=== PATIENT | female | born 1955 | race Caucasian/White ===

== ENCOUNTER → 2018-09-06 | Outpatient (CLI) | payer BC ==
--- NOTE | 2018-09-06 12:58 | XR ---
EXAM TYPE: LUMBAR SPINE X RAY SERIES COMPARISON: NONE HISTORY: Lower back pain TECHNIQUE: 4 views are submitted. FINDINGS: Alignment is anatomic. The pedicles are intact. The transverse processes are intact. There is no s pondylolysis or spondylolisthesis. Hypertrophic spurring and diffuse osteopenia noted. Multilevel si gnificant degenerative disc disease with most marked findings at L2-3, L4-5 and L5-S1. Facet arthropa thy at all levels. IMPRESSION: 1. Multilevel severe degenerative disc disease and facet arthropathy..
--- NOTE | 2018-09-06 13:18 | US ---
EXAMINATION TYPE: US venous doppler duplex LE LT DATE OF EXAM: 09/06/2018 12:20 PM COMPARISON: NONE CLINICAL HISTORY: R22.42 Localized swelling, mass and lump, left low. Pt states left leg and back nahum n x 3 days SIDE PERFORMED: Left TECHNIQUE: The lower extremity deep venous system is examined utilizing real time linear array sonog mac with graded compression, doppler sonography and color-flow sonography. VESSELS IMAGED: External Iliac Vein (EIV) Common Femoral Vein Deep Femoral Vein Greater Saphenous Vein * Femoral Vein Popliteal Vein Small Saphenous Vein * Proximal Calf Veins (* superficial vessels) There is echogenic thrombus, lack of compression, and no vascular flow within the left popliteal vein and proximal calf veins. Remainder of the left lower extremity venous system is unremarkable as visu alized. Left Leg: Positive for DVT left pop veins and proximal calf veins Results called to Tova at 's office at time of exam IMPRESSION: Positive deep venous thrombosis within the left popliteal vein extending downward through the proximal calf veins. Findings were communicated with Dr. Bernardo's office by the doctor naturopathic at the time of examination.
== END ==
LOC: RADUSWWP 11:28
PROVIDERS: ATTEND Internal Medicine Geriatric Medicine
DX: M51.36 Other intervertebral disc degeneration, lumbar region (principal); M46.96 Unspecified inflammatory spondylopathy, lumbar region; I82.432 Acute embolism and thrombosis of left popliteal vein
CPT/HCPCS: 72100

== ENCOUNTER → 2018-09-09 | Outpatient (CLI) | payer BC ==
--- NOTE | 2018-09-09 13:39 | NM ---
EXAMINATION TYPE: NM bone scan whole body DATE OF EXAM: 09/09/2018 COMPARISON: Lumbar x-ray 09/06/2018 HISTORY: Breast cancer Delayed whole-body scanning was performed following the injection of 25.9 mCi Tc 99m MDP. Images acq uired 3 hours post injection. FINDINGS: Abnormal uptake involving the feet, knees are most typical of arthritic changes. Nonspecific uptake i nvolving the shoulders likely post arthritic greater on the right. X-ray correlation on the right cou ld be obtained. Asymmetric reduced uptake involving the proximal diaphysis of the right femur. There is abnormal uptake throughout the thoracic spine and mid and lower lumbar spine with most marke d findings at L5 on the right. IMPRESSION: 1. Abnormal uptake involving the thoracic and lumbar spine is nonspecific but degenerative changes ar e favored given the intensity of uptake. Recent x-ray at the level L4-5 and L5-S1 consistent with deg enerative changes. 2. Abnormal uptake involving the right shoulder could be related the patient's history of previous ri ght shoulder shoulder surgery and arthritic changes. 3. Photopenic area involving the right hip proximally. Recommend x-ray correlation.
== END | disposition home or self-care (01) ==
LOC: RADNMMAIN 09:38
PROVIDERS: ATTEND Internal Medicine Geriatric Medicine
DX: C50.919 Malignant neoplasm of unspecified site of unspecified female breast (principal); R93.7 Abnormal findings on diagnostic imaging of other parts of musculoskeletal system
CPT/HCPCS: 78306; A9503

== ENCOUNTER → 2019-04-20 | Outpatient (CLI) | payer BC ==
--- NOTE | 2019-04-20 13:56 | US ---
EXAMINATION TYPE: US venous doppler duplex LE LT DATE OF EXAM: 04/20/2019 1:45 PM COMPARISON: 08/2018 CLINICAL HISTORY: I82.890 DVT. SIDE PERFORMED: left TECHNIQUE: The lower extremity deep venous system is examined utilizing real time linear array sonog mac with graded compression, doppler sonography and color-flow sonography. VESSELS IMAGED: External Iliac Vein (EIV) Common Femoral Vein Deep Femoral Vein Greater Saphenous Vein * Femoral Vein Popliteal Vein Small Saphenous Vein * Proximal Calf Veins (* superficial vessels) Grayscale, color doppler, spectral doppler imaging performed of the deep veins of the left lower extr emity. There is normal flow, compressibility, vascular waveforms. pt on eloquis 6 months , popliteal wnl Left Leg: Negative for DVT IMPRESSION: The previously seen deep venous thrombosis within the left popliteal vein has resolved in the interim as this patient has been on blood thinners. No deep venous thrombosis is seen within t he left lower extremity.
== END | disposition home or self-care (01) ==
LOC: RADUSWWP 13:23
PROVIDERS: ATTEND Internal Medicine Hematology & Oncology
DX: I82.890 Acute embolism and thrombosis of other specified veins (principal)

== ENCOUNTER → 2019-10-11 | Outpatient (CLI) | payer MEDICARE ==
--- NOTE | 2019-10-11 10:08 | MR ---
EXAMINATION TYPE: MR lumbar spine wo/w con DATE OF EXAM: 10/11/2019 COMPARISON: Plain film 09/06/2018, bone scan 09/09/2018 HISTORY: Spinal enthesopathy TECHNIQUE: Multiplanar, multisequence images of the lumbar spine were acquired utilizing 7.5 mL intravenous Gada vist gadolinium contrast. L1-L2: Broad-based posterior disc bulge causes mild anterior mass effect sac. No significant central stenosis or foraminal. L2-L3: There is facet arthropathy change causing some posterior lateral mass effect on the thecal sac . Circumferential posterior extension endplate disc complex causes mild anterior mass effect thecal s ac. No significant foraminal encroachment. L3-L4: Circumferential broad-based disc bulge causes minimal anterior mass effect on the thecal sac. No significant spinal stenosis. Facet arthropathy causes posterior lateral mass effect on the thecal sac. Circumferential extension of endplate disc complex encroaches somewhat on the neural foramen rig ht greater than left. L4-L5: Posterior broad-based disc bulge causes anterior mass effect on the thecal sac. Circumferentia l extension of endplate disc complex results in foraminal encroachment greater on the right. There is some facet arthropathy with hypertrophy ligamentum flavum. No significant spinal stenosis. L5-S1: Facet arthropathy changes present. Circumferencial extension of endplate disc complex results in bilateral foraminal encroachment. Posterior extension endplate disc complex may contact the proxim al S1 nerve roots, anterior thecal sac. No significant spinal stenosis. Lumbar segments are intact. No paraspinal masses are identified. Conus medullaris has a normal appe arance. Is multilevel spondylosis. Endplate discogenic marrow signal changes are noted. Vacuum phenom enon present L4-5, L3-4, L2-3 and L1-2, L5-S1. Loss of disc height and signal present at intervertebr al levels. Probable hemangioma present in the L1 vertebral body. There are parapelvic cysts noted wit hin the kidneys. No abnormal enhancement following contrast administration. IMPRESSION: Multilevel degenerative disc disease, foraminal encroachment, facet arthropathy. Additional findings above.
== END | disposition home or self-care (01) ==
LOC: RADMRIMAIN 08:28
PROVIDERS: ATTEND Internal Medicine Geriatric Medicine
DX: M51.36 Other intervertebral disc degeneration, lumbar region (principal); M46.96 Unspecified inflammatory spondylopathy, lumbar region
CPT/HCPCS: 72158; A9585

== ENCOUNTER → 2021-04-29 | Outpatient (CLI) | payer MEDICARE ==
--- NOTE | 2021-04-30 16:48 | BD ---
EXAMINATION TYPE: Axial Bone Density DATE OF EXAM: 04/29/2021 COMPARISON: NONE CLINICAL HISTORY: Height: 62 Weight: 169.1 FRAX RISK QUESTIONS: Alcohol (3 or more units per day): no Family History (Parent hip fracture): no Glucocorticoids (More than 3mos): no (Ex: prednisone, prednisolone, methylprednisolone, dexamethasone, and hydrocortisone). History of Fracture in Adulthood: no Secondary Osteoporosis: 1. Type 1 Diabetes: no 2. Hyperthyroidism: no 3. Menopause before 45: yes 4. Malnutrition: no 5. Chronic liver disease: no Rheumatoid Arthritis: no Current Tobacco Use: no RISK FACTORS HISTORY OF: Surgery to Spine/Hip(right/left)/Wrist (right/left): no Family History of Osteoporosis: no Active: yes Diet low in dairy products/other sources of calcium: yes Postmenopausal woman: age 41 Lost more than 2 inches in height since high school: no MEDICATIONS: singular, letrozole, crestor Additional History: EXAM MEASUREMENTS: Bone mineral densitometry was performed using the [employer] System. Bone mineral density as measured about the Lumbar spine is: ----- L1-L4(G/cm2): 1.115 T Score Values are as follows: ----- L2: -0.8 ----- L3: -0.7 ----- L4: 0.6 ----- L1-L4: -0.5 Bone mineral density : baseline Bone mineral density about the R hip (g/cm2): 0.934 Bone mineral density about the L hip (g/cm2): 0.883 T Score values are as follows: -----R Neck: -0.7 -----L Neck: -1.1 -----R Total: 0.0 -----L Total: -0.4 Bone mineral density : baseline IMPRESSION: Normal (Values between +1 and -1 indicate normal bone mass). Consider repeating this study in 5 year s or sooner if there is some new clinical indication. NOTE: T-SCORE=SD OF THE YOUNG ADULT MEAN.
== END | disposition home or self-care (01) ==
LOC: RADBDWWP 16:03
PROVIDERS: ATTEND Internal Medicine Geriatric Medicine
DX: M81.0 Age-related osteoporosis without current pathological fracture (principal)
CPT/HCPCS: 77080

== ENCOUNTER → 2022-04-29 | Outpatient (CLI) | payer MEDICARE ==
--- NOTE | 2022-04-29 12:27 | XR ---
EXAM TYPE: LUMBAR SPINE X RAY SERIES COMPARISON: NONE HISTORY: Diffuse osteopenia TECHNIQUE: 4 views are submitted. FINDINGS: Alignment is anatomic. The pedicles are intact. The transverse processes are intact. There is a hy pertrophic and degenerative changes of the spine with most marked findings at L2-3, L4-5 and L5-S1. M ultilevel facet arthropathy with foraminal encroachment suspected at levels L3-S1. IMPRESSION: 1. Diffuse osteopenia with multilevel moderate to severe degenerative disc disease and facet arthropa thy. Suspect multilevel foraminal encroachment with most marked findings at L4-5 and L5-S1..
== END | disposition home or self-care (01) ==
LOC: RADXRMAIN 12:03
PROVIDERS: ATTEND Internal Medicine Geriatric Medicine
DX: M48.00 Spinal stenosis, site unspecified (principal)
CPT/HCPCS: 72100

== ENCOUNTER → 2022-10-02 | Outpatient (CLI) | payer MEDICARE ==
--- NOTE | 2022-10-02 08:02 | US ---
EXAMINATION TYPE: US abdomen complete DATE OF EXAM: 10/02/2022 COMPARISON: NONE CLINICAL HISTORY: R10.9 ABD PAIN. LUQ pain under ribcage TECHNIQUE: Multiple sonographic images of the abdomen are obtained. FINDINGS: EXAM MEASUREMENTS: Liver Length: 18.8 cm Gallbladder Wall: 0.2 cm CBD: 0.5 cm Spleen: 10.4 cm Right Kidney: 9.1 x 5.4 x 5.7 cm Left Kidney: 10.3 x 3.8 x 5.5 cm [employer]PER[employer] NOTES: limited views due to habitus and bowel gas Pancreas: limited views appear wnl Liver: focal fatty sparring seen at left lobe = 2.8 x 2.8 x 1.5cm Gallbladder: wnl Evidence for sonographic Boothe's sign: no CBD: wnl Spleen: wnl Right Kidney: wnl Left Kidney: wnl Upper IVC: wnl Abd Aorta: wnl The limited portion of the visualized pancreas is unremarkable. The liver is diffusely hyperechoic wi th focal hypoechoic region in the left hepatic lobe measuring 2.8 x 2.8 x 1.5 cm. Gallbladder is with in normal limits without evidence of cholelithiasis. The intrahepatic portion of the IVC and proximal abdominal aorta are within normal limits. The spleen is unremarkable. Kidneys are symmetric and fr ee of hydronephrosis. No renal lesions are seen. IMPRESSION: 1. No acute process. 2. Hepatic steatosis with focal hypoechoic region in the left hepatic lobe favored to represent fatty sparing. This could be confirmed with CT or MRI with and without IV contrast liver mass protocol.
== END | disposition home or self-care (01) ==
LOC: RADUSWWP 07:16
PROVIDERS: ATTEND Internal Medicine Geriatric Medicine
DX: K76.0 Fatty (change of) liver, not elsewhere classified (principal)
CPT/HCPCS: 76700

== ENCOUNTER → 2022-10-06 | Outpatient (CLI) | payer MEDICARE ==
--- NOTE | 2022-10-06 11:03 | XR ---
EXAMINATION TYPE: XR chest 2V DATE OF EXAM: 10/06/2022 COMPARISON: NONE TECHNIQUE: PA and lateral views submitted. HISTORY: Pain FINDINGS: The lungs are clear and there is no pneumothorax, pleural effusion, or focal pneumonia. Heart size is prominent with a lobulated left heart border. Limited inspiration. Postsurgical change right shoul kirby.. Osseous structures demonstrate hypertrophic and degenerative changes of the spine. Calcified ly mph nodes in the mediastinum. IMPRESSION: 1. Lobulated left heart border. Could represent a cardiac chamber enlargement. Recommend CT of the ch est exclude other etiologies including mediastinal mass..
--- NOTE | 2022-10-06 11:08 | XR ---
EXAMINATION TYPE: XR thoracic spine complete DATE OF EXAM: 10/06/2022 COMPARISON: NONE HISTORY: Pain TECHNIQUE: 3 views submitted FINDINGS: Alignment is anatomic. There is scoliotic curvature despite multilevel moderate to severe degenerati ve disc disease. Calcified mediastinal and hilar lymph nodes noted. Heart size prominent but limited in the [id number]. The downsloping of degenerative disc disease lower cervical spine. IMPRESSION: 1. Scoliosis with moderate to severe multilevel degenerative disc disease.
== END | disposition home or self-care (01) ==
LOC: RADXRMAIN 10:26
PROVIDERS: ATTEND Internal Medicine
DX: S23.41XA Sprain of ribs, initial encounter (principal); M51.34 Other intervertebral disc degeneration, thoracic region; M41.84 Other forms of scoliosis, thoracic region
CPT/HCPCS: 71046; 72072

== ENCOUNTER → 2023-05-19 | Outpatient (CLI) | payer MEDICARE ==
--- NOTE | 2023-05-19 15:58 | XR ---
EXAMINATION TYPE: XR knee complete LT DATE OF EXAM: 05/19/2023 COMPARISON: NONE HISTORY: Pain TECHNIQUE: Three views are submitted. FINDINGS: Mild narrowing of the tricompartment joint space is marginal spurring. Mild diffuse osteopenia. No er osive changes. There is small amount of fluid versus.. Osseous structures are intact. No acute frac ture seen. IMPRESSION: 1. Mild osteoarthritis and diffuse osteopenia. There is a small amount of fluid in the suprapatellar bursa which may be associated with internal derangement of the knee. Consider follow-up MRI.
--- NOTE | 2023-05-19 16:00 | BD ---
EXAMINATION TYPE: Axial Bone Density DATE OF EXAM: 05/19/2023 CLINICAL HISTORY: 67 years old Female. ICD-10 CODE: M81.0 AGE-RELATED OSTEOPOROSIS W/O CURRENT PATHO LO Height: 60 in Weight: 178 lbs FRAX RISK QUESTIONS: Secondary Osteoporosis: 3. Menopause before 45: partial hysterectomy age 41 RISK FACTORS HISTORY OF: Active: yes Diet low in dairy products/other sources of calcium: yes Postmenopausal woman: partial hysterectomy age 41 MEDICATIONS: Additional Medications: vit d, letrozole,cholesterol meds, neuropathy meds, asthma meds, arthritis me ds Additional History: breast cancer EXAM MEASUREMENTS: Bone mineral densitometry was performed using the [employer] System. Bone mineral density as measured about the Lumbar spine is: ----- L1-L4(G/cm2): 1.163 T Score Values are as follows: ----- L1: -1.0 ----- L2: -0.9 ----- L3: 0.6 ----- L4: 0.7 ----- L1-L4: -0.1 Z Score Values are as follows: ----- L1: 0.1 ----- L2: 0.2 ----- L3: 1.7 ----- L4: 1.8 ----- L1-L4: 1.0 Bone mineral density has: Increased 4.3% since study of: 04/29/2021 Bone mineral density about the R hip (g/cm2): 0.974 Bone mineral density about the L hip (g/cm2): 0.966 T Score values are as follows: -----R Neck: -0.9 -----L Neck: -1.0 -----R Total: -0.3 -----L Total: -0.3 Z Score values are as follows: -----R Neck: 0.4 -----L Neck: 0.3 -----R Total: 0.7 -----L Total: 0.7 Bone mineral density has: Decreased -1.3% since study of: 04/29/2021 FRAX%s: The graph provided illustrates a 8.0% chance for a major osteoporotic fx and a 0.7% chance fo r the hips probability for fx in 10 years time. IMPRESSION: Normal (Values between +1 and -1 indicate normal bone mass). Consider repeating this study in 5 year s or sooner if there is some new clinical indication. NOTE: T-SCORE=SD OF THE YOUNG ADULT MEAN.
== END | disposition home or self-care (01) ==
LOC: RADBDWWP 14:47
PROVIDERS: ATTEND Internal Medicine Geriatric Medicine
DX: M81.0 Age-related osteoporosis without current pathological fracture (principal); M17.12 Unilateral primary osteoarthritis, left knee; M85.862 Other specified disorders of bone density and structure, left lower leg; D65 Disseminated intravascular coagulation [defibrination syndrome]
CPT/HCPCS: 77080

== ENCOUNTER 2024-06-29 07:11 | Emergency (ER) | payer MEDICARE ==
--- NOTE | 2024-06-29 08:26 | ED ---
URI HPI - General Chief Complaint: Upper Respiratory Infection Stated Complaint: Covid+ Time Seen by Provider: 06/29/24 07:20 Source: patient, family, RN notes reviewed Mode of arrival: ambulatory Limitations: no limitations - History of Present Illness Initial Comments: This is a 68-year-old female with history of asthma presenting with cold-like symptoms x 9 days patient patient endorses productive cough, nasal congestion, headache, reproducible chest pain, shortness of breath and fatigue. Patient endorses symptoms beginning while she was vacationing in [facility]. Patient endorses positive at-home COVID test 5 days ago following her return. Patient endorses receiving Z-James and Medrol Dosepak from primary care for symptoms with minimal relief despite near completion of regiment. Patient denies fever, chills, body aches, sore throat, wheezing, N/V/D. MD Complaint: cough, nasal congestion Onset/Timin -: days(s) - Related Data Allergies Allergy/AdvReac Type Severity Reaction Status Date / Time No Known Allergies Allergy Verified 06/29/24 07:28 Review of Systems ROS Statement: Those systems with pertinent positive or pertinent negative responses have been documented in the HPI. ROS Other: All systems not noted in ROS Statement are negative. Past Medical History Past Medical History: Asthma, Cancer Additional Past Medical History / Comment(s): Breast Ca Past Surgical History: Hysterectomy, Orthopedic Surgery Additional Past Surgical History / Comment(s): Rotator Cuff Sx Past Psychological History: No Psychological Hx Reported Smoking Status: Former smoker Past Alcohol Use History: Occasional Past Drug Use History: None Reported General Exam Limitations: no limitations General appearance: alert, in no apparent distress Head exam: Present: atraumatic, normocephalic, normal inspection Eye exam: Present: normal appearance, PERRL, EOMI. Absent: scleral icterus, conjunctival injection, periorbital swelling ENT exam: Present: normal exam (Postnasal drip noted), mucous membranes moist Neck exam: Present: normal inspection. Absent: tenderness, meningismus, lymphadenopathy Respiratory exam: Present: normal lung sounds bilaterally. Absent: respiratory distress, wheezes, rales, rhonchi, stridor Cardiovascular Exam: Present: regular rate, normal rhythm, normal heart sounds. Absent: systolic murmur, diastolic murmur, rubs, gallop, clicks GI/Abdominal exam: Present: soft, normal bowel sounds. Absent: distended, tenderness, guarding, rebound, rigid Extremities exam: Present: normal inspection, full ROM, normal capillary refill. Absent: tenderness, pedal edema, joint swelling, calf tenderness Back exam: Present: normal inspection Neurological exam: Present: alert, oriented X3, CN II-XII intact Psychiatric exam: Present: normal affect, normal mood Skin exam: Present: warm, dry, intact, normal color. Absent: rash Course Vital Signs 06/29/24 06/29/24 07:29 09:30 Temperature 97.9 F 98.1 F Pulse Rate 91 61 Respiratory 18 20 Rate Blood Pressure 183/98 184/90 O2 Sat by Pulse 97 96 Oximetry Medical Decision Making - Medical Decision Making Was pt. sent in by a medical professional or institution (, PA, LEADING FIREFIGHTER, urgent care, hospital, or fci...) When possible be specific @ -[No] Did you speak to anyone other than the patient for history (EMS, parent, family, police, friend...)? What history was obtained from this source @ -[No] Did you review nursing and triage notes (agree or disagree)? Why? @ -[I reviewed and agree with nursing and triage notes] Were old charts reviewed (outside hosp., previous admission, EMS record, old EKG, old radiological studies, urgent care reports/EKG's, fci records)? Report findings @ -[No old charts were reviewed] Differential Diagnosis (chest pain, altered mental status, abdominal pain women, abdominal pain men, vaginal bleeding, weakness, fever, dyspnea, syncope, headache, dizziness, GI bleed, back pain, seizure, CVA, palpatations, mental health, musculoskeletal)? @ -Upper respiratory infection, COVID-19, acute bronchitis, pneumonia, croup, asthma, influenza EKG interpreted by me (3pts min.). @ -Not done X-rays interpreted by me (1pt min.). @ -Chest x-ray shows no pulmonary edema or focal consolidation. CT interpreted by me (1pt min.). @ -[None done] U/S interpreted by me (1pt. min.). @ -[None done] What testing was considered but not performed or refused? (CT, X-rays, U/S, labs)? Why? @ -[None] What meds were considered but not given or refused? Why? @ -[None] Did you discuss the management of the patient with other professionals (professionals i.e. , PA, LEADING FIREFIGHTER, lab, RT, psych nurse, licensed social worker, network associate, teacher, ethics officer, case consultant)? Give summary @ -[No] Was smoking cessation discussed for >3mins.? @ -[No] Was critical care preformed (if so, how long)? @ -[No] Were there social determinants of health that impacted care today? How? (Homelessness, low income, unemployed, alcoholism, drug addiction, transportation, low edu. Level, literacy, decrease access to med. care, snf, rehab)? @ -[No] Was there de-escalation of care discussed even if they declined (Discuss DNR or withdrawal of care, Hospice)? DNR status @ -[No] What co-morbidities impacted this encounter? (DM, HTN, Smoking, COPD, CAD, Cancer, CVA, ARF, Chemo, Hep., AIDS, mental health diagnosis, sleep apnea, morbid obesity)? @ -[None] Was patient admitted / discharged? Hospital course, mention meds given and route, prescriptions, significant lab abnormalities, going to OR and other pertinent info. @ -Discharge. Cephad test negative chest x-ray unremarkable. Patient notes some improvement with breathing following Solu-Medrol IV. Patient notes resolu tion of previous complaints following treatment. Undiagnosed new problem with uncertain prognosis? @ -[No] Drug Therapy requiring intensive monitoring for toxicity (Heparin, Nitro, Insulin, Cardizem)? @ -[No] Were any procedures done? @ -[No] Diagnosis/symptom? @ -Acute bronchitis following COVID infection. Acute, or Chronic, or Acute on Chronic? @ -Acute Uncomplicated (without systemic symptoms) or Complicated (systemic symptoms)? @ -Uncomplicated Side effects of treatment? @ -[No] Exacerbation, Progression, or Severe Exacerbation? @ -[No] Poses a threat to life or bodily function? How? (Chest pain, USA, SD, pneumonia, PE, COPD, DKA, ARF, appy, cholecystitis, CVA, Diverticulitis, Homicidal, Suicidal, threat to staff... and all critical care pts) @ -[No] - Lab Data Lab Results 06/29/24 Range/Units 08:21 Influenza Type A (PCR) Not Detected (Not Detectd) Influenza Type B (PCR) Not Detected (Not Detectd) RSV (PCR) Not Detected (Not Detectd) SARS-CoV-2 (PCR) Not Detected (Not Detectd) Disposition Clinical Impression: Bronchitis Disposition: HOME SELF-CARE Condition: Good Instructions (If sedation given, give patient instructions): Upper Respiratory Infection (ED) Is patient prescribed a controlled substance at d/c from ED?: No Referrals: Mt Marks MD [Primary Care Provider] - 1-2 days Time of Disposition: 10:25
[2024-06-29] MEDS: methylPREDNISolone SOD SUCCI 125 MG/2 ML VIAL IM ONE (08:48)
--- NOTE | 2024-06-29 08:51 | XR ---
EXAMINATION TYPE: XR chest 2V DATE OF EXAM: 06/29/2024 COMPARISON: 10/06/2022 HISTORY: 68 year-old female shortness of breath and productive cough TECHNIQUE: PA and lateral views FINDINGS: Heart upper limits of normal in size. Some stringy areas of atelectasis remain at the lower lungs. No celso consolidation is identified. No pleural effusion. Suture anchor right humeral head from prior cuff repair. IMPRESSION: Some stranding areas of atelectasis at the lower lungs. No celso airspace disease is seen at this jose e. [facility], , 06/29/2024 8:49 AM
[2024-06-29 09:46] VITALS: BP 184/90; PULSE 61; RESP 20; TEMP 98.1
== END 2024-06-29 11:02 | disposition home or self-care (01) ==
LOC: EC 07:11
CPT/HCPCS: 71046; 87636; 96372; 99285

== ENCOUNTER 2024-07-17 11:47 | Emergency (ER) | payer MEDICARE ==
--- NOTE | 2024-07-17 13:37 | ED ---
General Adult HPI - General Chief complaint: Recheck/Abnormal Lab/Rx Stated complaint: Hypertension Time Seen by Provider: 07/17/24 12:41 Source: patient, family, RN notes reviewed Mode of arrival: ambulatory Limitations: no limitations - History of Present Illness Initial comments: Patient is a 68-year-old female present to the emergency department with concerns with high blood pressure. Patient was at her primary care physician's office a week ago and blood pressure was fine at that time. Patient does have recent COVID-19 infection and is on her second round of antibiotics and steroids. Patient has continued cough. Patient has had a mild headache. Blood pressure at home the past 2 days has been as high as 220/110. No history of hypertension. Patient did take one of her husbands hydralazine yesterday and today. - Related Data Previous Rx's Medication Instructions Recorded amLODIPine [Norvasc] 5 mg PO DAILY #7 tab 07/17/24 Allergies Allergy/AdvReac Type Severity Reaction Status Date / Time No Known Allergies Allergy Verified 06/29/24 07:28 Review of Systems ROS Statement: Those systems with pertinent positive or pertinent negative responses have been documented in the HPI. ROS Other: All systems not noted in ROS Statement are negative. Constitutional: Denies: fever Eyes: Denies: eye pain ENT: Denies: ear pain Respiratory: Reports: cough. Denies: dyspnea Cardiovascular: Denies: chest pain Gastrointestinal: Denies: abdominal pain Genitourinary: Denies: dysuria Musculoskeletal: Denies: back pain Neurological: Reports: as per HPI, headache. Denies: weakness, confusion Past Medical History Past Medical History: Asthma, Cancer Additional Past Medical History / Comment(s): Breast Ca Past Surgical History: Hysterectomy, Orthopedic Surgery Additional Past Surgical History / Comment(s): Rotator Cuff Sx Past Psychological History: No Psychological Hx Reported Smoking Status: Former smoker Past Alcohol Use History: Occasional Past Drug Use History: None Reported General Exam Limitations: no limitations General appearance: alert, in no apparent distress Head exam: Present: normocephalic Eye exam: Present: normal appearance, PERRL Neck exam: Present: normal inspection Respiratory exam: Present: normal lung sounds bilaterally Cardiovascular Exam: Present: regular rate, normal rhythm GI/Abdominal exam: Present: soft. Absent: tenderness Extremities exam: Present: normal inspection. Absent: pedal edema, calf tenderness Neurological exam: Present: alert, oriented X3, CN II-XII intact. Absent: motor sensory deficit Expanded Neurological exam: Present: protecting the airway Speech: Present: fluid speech Motor strength exam: RUE: 5, LUE: 5, RLE: 5, LLE: 5 Eye Response: (4) open spontaneously Motor Response: (6) obeys commands Verbal Response: (5) oriented Psychiatric exam: Present: normal affect, normal mood Skin exam: Present: normal color Course Vital Signs 07/17/24 07/17/24 12:13 13:50 Temperature 98.2 F Pulse Rate 95 Respiratory 18 Rate Blood Pressure 154/80 157/86 O2 Sat by Pulse 97 Oximetry EKG Findings - EKG Results: EKG: interpreted by JESSICAD, sinus rhythm, normal axis, normal QRS, normal ST/T Medical Decision Making - Medical Decision Making Was pt. sent in by a medical professional or institution (, PA, DIGITAL MARKETING CONSULTANT, urgent care, hospital, or skilled nursing...) When possible be specific @ -No Did you speak to anyone other than the patient for history (EMS, parent, family, police, friend...)? What history was obtained from this source @ - is present helps provide history including blood pressure monitoring Did you review nursing and triage notes (agree or disagree)? Why? @ -I reviewed and agree with nursing and triage notes Were old charts reviewed (outside hosp., previous admission, EMS record, old EKG, old radiological studies, urgent care reports/EKG's, skilled nursing records)? Report findings @ -No old charts were reviewed Differential Diagnosis (chest pain, altered mental status, abdominal pain women, abdominal pain men, vaginal bleeding, weakness, fever, dyspnea, syncope, headache, dizziness, GI bleed, back pain, seizure, CVA, palpatations, mental health, musculoskeletal)? @ -Differential Dizziness: Benign paroxysmal positional Vertigo, Meniere's disease, otitis media, acoustic neuroma, vertebrobasilar insufficiency, cerebellar stroke, encephalitis, hypovolemic, arrhythmia, coronary artery syndrome, anemia, this is not meant to be an all-inclusive list EKG interpreted by me (3pts min.). @ -As above X-rays interpreted by me (1pt min.). @ -Chest x-ray does not reveal acute abnormality CT interpreted by me (1pt min.). @ -None done U/S interpreted by me (1pt. min.). @ -None done What testing was considered but not performed or refused? (CT, X-rays, U/S, labs)? Why? @ -Consider CT scan of the brain however on reevaluation patient states headaches have only been mild and are not severe. Patient does not even feel she needs medication for it. Patient does not want CTs done. What meds were considered but not given or refused? Why? @ -None Did you discuss the management of the patient with other professionals (professionals i.e. DrSalud, PA, DIGITAL MARKETING CONSULTANT, lab, RT, psych nurse, social work program coordinator, staple cutter, teacher, major gifts officer, shoe caser)? Give summary @ -No Was smoking cessation discussed for >3mins.? @ -No Was critical care preformed (if so, how long)? @ -No Were there social determinants of health that impacted care today? How? (Homelessness, low income, unemployed, alcoholism, drug addiction, tr ansportation, low edu. Level, literacy, decrease access to med. care, alf, rehab)? @ -No Was there de-escalation of care discussed even if they declined (Discuss DNR or withdrawal of care, Hospice)? DNR status @ -No What co-morbidities impacted this encounter? (DM, HTN, Smoking, COPD, CAD, Cancer, CVA, ARF, Chemo, Hep., AIDS, mental health diagnosis, sleep apnea, morbid obesity)? @ -None Was patient admitted / discharged? Hospital course, mention meds given and route, prescriptions, significant lab abnormalities, going to OR and other pertinent info. @ -Patient presents with hypertension and otherwise minimal symptoms. Blood pressure is well-controlled in the emergency department. Patient will be started on low-dose medication and recommended close follow-up. Patient states she is already in touch with her doctor for close follow-up. Undiagnosed new problem with uncertain prognosis? @ -No Drug Therapy requiring intensive monitoring for toxicity (Heparin, Nitro, Insulin, Cardizem)? @ -No Were any procedures done? @ -No Diagnosis/symptom? @ -Hypertension Acute, or Chronic, or Acute on Chronic? @ -Acute Uncomplicated (without systemic symptoms) or Complicated (systemic symptoms)? @ -Default Side effects of treatment? @ -No Exacerbation, Progression, or Severe Exacerbation? @ -No Poses a threat to life or bodily function? How? (Chest pain, [place], [place], pneumonia, PE, COPD, DKA, ARF, appy, cholecystitis, CVA, Diverticulitis, Homicidal, Suicidal, threat to staff... and all critical care pts) @Threat to multiple functions - Lab Data Result diagrams: 07/17/24 13:55 07/17/24 14:00 Lab Results 07/17/24 07/17/24 Range/Units 13:55 14:00 WBC 14.8 H (3.8-10.6) k/uL RBC 3.86 (3.80-5.40) m/uL Hgb 12.7 (11.4-16.0) gm/dL Hct 39.0 (34.0-46.0) % MCV 100.9 H (80.0-100.0) fL MCH 32.9 (25.0-35.0) pg MCHC 32.6 (31.0-37.0) g/dL RDW 13.2 (11.5-15.5) % Plt Count 330 (150-450) k/uL MPV 7.5 Neutrophils % 75 % Lymphocytes % 18 % Monocytes % 4 % Eosinophils % 1 % Basophils % 0 % Neutrophils # 11.1 H (1.3-7.7) k/uL Lymphocytes # 2.7 (1.0-4.8) k/uL Monocytes # 0.6 (0-1.0) k/uL Eosinophils # 0.2 (0-0.7) k/uL Basophils # 0.0 (0-0.2) k/uL Sodium 135 L (137-145) mmol/L Potassium 3.9 (3.5-5.1) mmol/L Chloride 106 (98-107) mmol/L Carbon Dioxide 25 (22-30) mmol/L Anion Gap 4 mmol/L BUN 34 H (7-17) mg/dL Creatinine 1.14 H (0.52-1.04) mg/dL Est GFR (CKD-EPI)AfAm 57 (>60 ml/min/1.73 sqM) Est GFR (CKD-EPI)NonAf 49 (>60 ml/min/1.73 sqM) Glucose 86 (74-99) mg/dL Calcium 8.7 (8.4-10.2) mg/dL Total Bilirubin 1.4 H (0.2-1.3) mg/dL AST 38 H (14-36) U/L ALT 28 (4-34) U/L Alkaline Phosphatase 91 (38-126) U/L Total Protein 6.7 (6.3-8.2) g/dL Albumin 4.1 (3.5-5.0) g/dL Disposition Clinical Impression: Hypertension Disposition: HOME SELF-CARE Condition: Stable Instructions (If sedation given, give patient instructions): Hypertension (ED) Additional Instructions: Prescription sent to pharmacy. Please do follow-up with your primary care physician this week. Return for uncontrolled blood pressure, chest pain or headache or weakness, worsening or changing symptoms or other concerns. Prescriptions: amLODIPine [Norvasc] 5 mg PO DAILY #7 tab Is patient prescribed a controlled substance at d/c from ED?: No Referrals: Mt Marks MD [Primary Care Provider] - 1-2 days Time of Disposition: 15:32
[2024-07-17 14:05] LABS: Basophils % (A) 0 %; Eosinophils # (A) 0.2 k/uL (0-0.7); Eosinophils % (A) 1 %; HGB 12.7 gm/dL (11.4-16.0); Lymphocytes # (A) 2.7 k/uL (1.0-4.8); Lymphocytes % (A) 18 %; MCH 32.9 pg (25.0-35.0); MCHC 32.6 g/dL (31.0-37.0); MCV 100.9 fL (80.0-100.0); Mean Platelet Volume 7.5; Monocytes # (A) 0.6 k/uL (0-1.0); Monocytes % (A) 4 %; Neutrophils # (A) 11.1 k/uL (1.3-7.7); Neutrophils % (A) 75 %; Platelet Count 330 k/uL (150-450); RBC 3.86 m/uL (3.80-5.40); RDW 13.2 % (11.5-15.5); WBC 14.8 k/uL (3.8-10.6)
[2024-07-17 14:18] LABS: ALT 28 U/L (4-34); AST 38 U/L (14-36); African American GFR (CKD) 57 (>60 ml/min/1.73 sqM); Albumin 4.1 g/dL (3.5-5.0); Alkaline Phosphatase 91 U/L (38-126); Anion Gap 4 mmol/L; Blood Urea Nitrogen 34 mg/dL (7-17); Calcium 8.7 mg/dL (8.4-10.2); Carbon Dioxide 25 mmol/L (22-30); Chloride 106 mmol/L (98-107); Glucose 86 mg/dL (74-99); Non-African American GFR(CKD) 49 (>60 ml/min/1.73 sqM); Potassium 3.9 mmol/L (3.5-5.1); Sodium 135 mmol/L (137-145); Total Bilirubin 1.4 mg/dL (0.2-1.3); Total Protein 6.7 g/dL (6.3-8.2)
--- NOTE | 2024-07-17 14:50 | XR ---
EXAMINATION TYPE: XR chest 2V DATE OF EXAM: 07/17/2024 2:46 PM COMPARISON: Chest radiographs from 06/29/2024 CLINICAL INDICATION: Female, 68 years old with history of htn; [facility] TECHNIQUE: XR chest 2V Frontal and lateral views of the chest. FINDINGS: Lungs/Pleura: There is no evidence of pleural effusion, focal consolidation, or pneumothorax. Pulmonary vascularity: Unremarkable. Heart/mediastinum: Cardiomediastinal silhouette is unremarkable. Musculoskeletal: No acute osseous pathology. IMPRESSION: No acute cardiopulmonary disease/process. [facility], , 07/17/2024 2:48 PM
[2024-07-17 15:45] VITALS: BP 153/80; PULSE 80; RESP 20; TEMP 98
== END 2024-07-17 15:45 | disposition home or self-care (01) ==
LOC: EC 11:47
CPT/HCPCS: 36415; 71046; 80053; 85025; 93005; 99284

== ENCOUNTER → 2024-07-19 | Outpatient (CLI) | payer MEDICARE ==
--- NOTE | 2024-07-19 16:16 | US ---
EXAMINATION TYPE: US venous doppler duplex LE BI DATE OF EXAM: 07/19/2024 3:53 PM COMPARISON: 04/20/19 CLINICAL INDICATION: Female, 68 years old with history of R22.42 LOCALIZED SWELLING, MASS AND LUMP, L EFT LOW; edema, Pain, Swelling TECHNIQUE: The lower extremity deep venous system is examined utilizing real time linear array sonog mac with graded compression, color doppler sonography, and spectral doppler. SIDE PERFORMED: Left FINDINGS: VESSELS IMAGED: Common Femoral Vein Deep Femoral Vein Greater Saphenous Vein * Femoral Vein Popliteal Vein Small Saphenous Vein * Proximal Calf Veins (* superficial vessels) Left Leg: Negative for DVT exam limited by edema attempted to call office with results. no answer. IMPRESSION: 1. Left lower extremity ultrasound negative for deep venous thrombosis. 2. Left lower extremity edema present. [facility], Workstation: [facility], 07/19/2024 4:14 PM
== END | disposition home or self-care (01) ==
LOC: RADUSWWP 15:15
PROVIDERS: ATTEND Internal Medicine Geriatric Medicine
DX: R22.42 Localized swelling, mass and lump, left lower limb (principal)
CPT/HCPCS: 93970

== ENCOUNTER 2024-07-28 19:40 | Emergency (ER) | payer MEDICARE ==
[2024-07-28 20:17] VITALS: TEMP 98.5
--- NOTE | 2024-07-28 20:19 | ED ---
Fall HPI - General Source: patient, family, RN notes reviewed Mode of arrival: wheelchair Limitations: no limitations - History of Present Illness MD Complaint: fall <Allyssa Jimenez - Last Filed: 07/28/24 20:33> - General Source: patient, RN notes reviewed <Cora Marte - Last Filed: 07/29/24 02:53> - General Chief Complaint: Fall Stated Complaint: Fall-ribs Time Seen by Provider: 07/28/24 20:15 - History of Present Illness Initial Comments: Quick Note: This is a 68 year old female who presents to the emergency department for a fall. Patient tripped on the back porch this evening and fell on the ground. She did hit her head and had a mild headache over the right temporal area. However, her largest concern is with pain over the left rib cage. Denies any LOC. Not taking any blood thinners. (Allyssa Jimenez) This is a 68-year-old female presenting to the emergency department for a fall. Patient states she tripped on the back porch this evening and fell onto her left side, hitting her head. Denies loss of consciousness. Denies blood thinners. She has mild headache on right temporal side however states most of her pain is located over her left rib cage worse with deep inspiration. Denies chest pain or shortness of breath. No other injuries. (Cora Marte) - Related Data Previous Rx's Medication Instructions Recorded amLODIPine [Norvasc] 5 mg PO DAILY #7 tab 07/17/24 Lidocaine 5% Patch [Lidoderm 5% 1 patch TOPICAL DAILY 7 Days #7 07/28/24 Patch] patch methocarbamoL [Robaxin] 500 mg PO TID PRN #15 tab 07/28/24 Allergies Allergy/AdvReac Type Severity Reaction Status Date / Time No Known Allergies Allergy Verified 07/28/24 20:17 Review of Systems ROS Other: All systems not noted in ROS Statement are negative. <Allyssa Jimenez - Last Filed: 07/28/24 20:33> ROS Other: All systems not noted in ROS Statement are negative. <Cora Marte - Last Filed: 07/29/24 02:53> ROS Statement: Those systems with pertinent positive or pertinent negative responses have been documented in the HPI. Past Medical History Past Medical History: Asthma, Cancer Additional Past Medical History / Comment(s): Breast Ca Past Surgical History: Hysterectomy, Orthopedic Surgery Additional Past Surgical History / Comment(s): Rotator Cuff Sx Past Psychological History: No Psychological Hx Reported Smoking Status: Former smoker Past Alcohol Use History: Occasional Past Drug Use History: None Reported <Allyssa Jimenez - Last Filed: 07/28/24 20:33> General Exam Limitations: no limitations <Allyssa Jimenez - Last Filed: 07/28/24 20:33> General appearance: alert, in no apparent distress Head exam: Present: atraumatic, normocephalic, other (Mild abrasion present on right temporal area of head with no active bleeding) Eye exam: Present: normal appearance, PERRL, EOMI. Absent: scleral icterus, conjunctival injection, periorbital swelling ENT exam: Present: normal exam, mucous membranes moist Neck exam: Present: normal inspection. Absent: tenderness, meningismus, lymphadenopathy Respiratory exam: Present: normal lung sounds bilaterally, chest wall tenderness (Tenderness over left lateral ribs, no overlying skin changes). Absent: respiratory distress, wheezes, rales, rhonchi, stridor Cardiovascular Exam: Present: regular rate, normal rhythm, normal heart sounds. Absent: systolic murmur, diastolic murmur, rubs, gallop, clicks GI/Abdominal exam: Present: soft, normal bowel sounds. Absent: distended, tenderness, guarding, rebound, rigid Neurological exam: Present: alert, oriented X3 Psychiatric exam: Present: normal affect, normal mood Skin exam: Present: warm, dry, intact, normal color. Absent: rash <Cora Marte - Last Filed: 07/29/24 02:53> - General Exam Comments Initial Comments: Visual Physical Exam Vital signs reviewed General: Well-appearing, nontoxic, no acute distress. Head: Normocephalic, atraumatic Eyes: PERRLA, EOMI ENT: Airway patent Chest: Nonlabored breathing Skin: No visual rash, normal skin tone Neuro: Alert and oriented 3 Musculoskeletal: No gross abnormalities (Allyssa Jimenez) Course Vital Signs 07/28/24 07/28/24 20:13 23:29 Temperature 98.5 F Pulse Rate 109 H 92 Respiratory 20 16 Rate Blood Pressure 165/81 170/80 O2 Sat by Pulse 98 96 Oximetry Medical Decision Making <Allyssa Jimenez - Last Filed: 07/28/24 20:33> <Cora Marte - Last Filed: 07/29/24 02:53> - Medical Decision Making I performed the QuickNote portion of this chart. Signed Allyssa Jimenez PA-C. (Allyssa Jimenez) Was pt. sent in by a medical professional or institution ([facility] Feldman, THROUGH OPERATOR, urgent care, hospital, or long term...) When possible be specific @ -No Did you speak to anyone other than the patient for history (EMS, parent, family, police, friend...)? What history was obtained from this source @ -No Did you review nursing and triage notes (agree or disagree)? Why? @ -I reviewed and agree with nursing and triage notes Were old charts reviewed (outside hosp., previous admission, EMS record, old EK G, old radiological studies, urgent care reports/EKG's, long term records)? Report findings @ -No old charts were reviewed Differential Diagnosis (chest pain, altered mental status, abdominal pain women, abdominal pain men, vaginal bleeding, weakness, fever, dyspnea, syncope, headache, dizziness, GI bleed, back pain, seizure, CVA, palpatations, mental health, musculoskeletal)? @ -Differential Musculoskeletal Muscular strain, contusion, ligament sprain, fracture, arthritis, septic arthritis, bursitis, cellulitis, muscle spasm, nerve compression, DVT, arterial occlusion, herpes zoster, electrolyte abnormality, tumor.... This is not meant to be in all inclusive list EKG interpreted by me (3pts min.). @ -None X-rays interpreted by me (1pt min.). @ -X-ray left ribs with PA chest reveals no acute process CT interpreted by me (1pt min.). @ -CT brain and C-spine revealed no acute process U/S interpreted by me (1pt. min.). @ -None done What testing was considered but not performed or refused? (CT, X-rays, U/S, labs)? Why? @ -None What meds were considered but not given or refused? Why? @ -Patient declined pain medication Did you discuss the management of the patient with other professionals (professionals i.e. GUS Feldman, THROUGH OPERATOR, lab, RT, psych nurse, social problems specialist, patent lawyer, teacher, dental officer, classification case manager)? Give summary @ -No Was smoking cessation discussed for >3mins.? @ -No Was critical care preformed (if so, how long)? @ -No Were there social determinants of health that impacted care today? How? (Homelessness, low income, unemployed, alcoholism, drug addiction, transportation, low edu. Level, literacy, decrease access to med. care, alf, rehab)? @ -No Was there de-escalation of care discussed even if they declined (Discuss DNR or withdrawal of care, Hospice)? DNR status @ -No What co-morbidities impacted this encounter? (DM, HTN, Smoking, COPD, CAD, Cancer, CVA, ARF, Chemo, Hep., AIDS, mental health diagnosis, sleep apnea, morbid obesity)? @ -None Was patient admitted / discharged? Hospital course, mention meds given and route, prescriptions, significant lab abnormalities, going to OR and other pertinent info. @ -Discharge. This is a 68-year-old female presenting for mechanical fall earlier today with head injury. Patient is complaining of left rib pain. Patient has tenderness to palpation over left lateral ribs. CT brain and C-spine revealed no acute process. X-ray left ribs revealed no acute process. Discussed results with patient. Diagnosed with left rib fracture based off of clinical presentation and examination. Supportive care discussed. Patient was given incentive spirometer and advised to use 10 times hourly while awake to prevent secondary infection. Case was discussed with my ED attending Dr. Martínez. Patient discharged in stable condition. Undiagnosed new problem with uncertain prognosis? @ -No Drug Therapy requiring intensive monitoring for toxicity (Heparin, Nitro, Insulin, Cardizem)? @ -No Were any procedures done? @ -No Diagnosis/symptom? @ -Left rib fracture Acute, or Chronic, or Acute on Chronic? @ -Acute Uncomplicated (without systemic symptoms) or Complicated (systemic symptoms)? @ -Uncomplicated Side effects of treatment? @ -No Exacerbation, Progression, or Severe Exacerbation? @ -No Poses a threat to life or bodily function? How? (Chest pain, [place], [place], pneumonia, PE, COPD, DKA, ARF, appy, cholecystitis, CVA, Diverticulitis, Homicidal, Suicidal, threat to staff... and all critical care pts) @ -No (Cora Marte) Disposition <Allyssa Jimenez - Last Filed: 07/28/24 20:33> Is patient prescribed a controlled substance at d/c from ED?: No Time of Disposition: 23:10 <Cora Marte - Last Filed: 07/29/24 02:53> Clinical Impression: Left rib fracture Disposition: HOME SELF-CARE Condition: Stable Instructions (If sedation given, give patient instructions): Rib Fracture (ED) Additional Instructions: Use incentive spirometer 10 times hourly while awake. Take ibuprofen, muscle relaxers, and use lidocaine patches as needed for pain. Please return to the Emergency Department if symptoms worsen or any other concerns. Prescriptions: Lidocaine 5% Patch [Lidoderm 5% Patch] 1 patch TOPICAL DAILY 7 Days #7 patch methocarbamoL [Robaxin] 500 mg PO TID PRN #15 tab PRN Reason: muscle spasms Referrals: Mt Marks MD [Primary Care Provider] - 1-2 days
--- NOTE | 2024-07-28 20:33 | XR ---
EXAMINATION TYPE: XR ribs LT w pa chest xray DATE OF EXAM: 07/28/2024 8:24 PM COMPARISON: 07/09/2024 CLINICAL INDICATION: Female, 68 years old with history of pain TECHNIQUE: XR ribs LT w pa chest xray; Frontal and oblique views of the ribs with frontal chest radio graph. FINDINGS: The ribs have a normal appearance. No evidence of fracture. Overall, the lungs are clear. The cardiac silhouette is normal in size. The remaining osseous structures are intact. IMPRESSION: No acute osseous pathology. [facility], , 07/28/2024 8:31 PM
--- NOTE | 2024-07-28 21:30 | CT ---
EXAMINATION TYPE: CT brain cspine wo con DATE OF EXAM: 07/28/2024 9:06 PM COMPARISON: None. CLINICAL INDICATION: Female, 68 years old with history of Fall, head injury; Fall. Head injury. Pain TECHNIQUE: Brain: Multiple axial CT images of the brain were obtained without IV contrast. Cspine: Axial CT images from the skull base to the inferior aspect of T2 we obtained without intraven ous contrast. Coronal and sagittal reformatted images were also reviewed. . CT DLP: 1426 mGycm, Automated exposure control for dose reduction was used. FINDINGS: Brain: Extra-axial spaces: No abnormal extra-axial fluid collections. Ventricular system: Within normal limits Cerebral parenchyma: No acute intraparenchymal hemorrhage or mass effect. The michael-white junction is well differentiated. Cerebellum: Unremarkable. Mass effect: No evidence of midline shift. Intracranial vasculature: unremarkable Soft tissues: Normal. Calvarium/osseous structures: No depressed skull fracture. Paranasal sinuses and mastoid air cells: Clear. Visualized orbits: Orbital contents are intact. Cervical spine: Fracture: None. Osseous structures: Multilevel degenerative disc disease changes with endplate spurring and disc oste ophyte complex's. Bone island in the C6 vertebral body. Vertebral alignment: Within normal limits. Spinal canal/Neural Foramina: No evidence of significant spinal canal narrowing. No evidence for sign ificant neural foraminal stenosis. Neck soft tissues: Prevertebral soft tissues are within normal limits. Other: The airway is patent. The lung apices are clear. Heterogenous thyroid gland bilaterally. IMPRESSION: 1. No acute intracranial process. 2. No evidence of cervical spine fracture. 3. Mild multilevel degenerative disc disease. [facility], , 07/28/2024 9:27 PM
[2024-07-28 23:30] VITALS: BP 170/80; PULSE 92; RESP 16
== END 2024-07-28 23:53 | disposition home or self-care (01) ==
LOC: EC 19:40
DX: S22.32XA Fracture of one rib, left side, initial encounter for closed fracture (principal); Z87.891 Personal history of nicotine dependence; W01.0XXA Fall on same level from slipping, tripping and stumbling without subsequent striking against object, initial encounter
CPT/HCPCS: 70450; 72125; 99284